=== PATIENT | male | born 2000 | race Caucasian/White ===

== ENCOUNTER 2023-12-10 18:03 | Emergency (ER) | payer SELFPAY ==
[~2023-12-10] VITALS: Ht 175.3 cm; Wt 81.0 kg
[2023-12-10 18:23] VITALS: BP 141/88; PULSE 64; RESP 20; TEMP 98; O2SAT 99
[2023-12-10] MEDS ORDERED: T3 PO (19:19)
[2023-12-10] MEDS ORDERED: BO1 TP (19:19)
[2023-12-10] MEDS: ACETAMINOPHEN WITH CODEINE 300/30MG TABLET PO ONE (19:20)
[2023-12-10] MEDS: BACITRACIN ZINC OINT UDPKT TOP ONE (19:21)
== END 2023-12-10 19:27 | disposition home or self-care (01) ==
LOC: ER 18:03
DX: S31.21XA Laceration without foreign body of penis, initial encounter (principal); Z98.890 Other specified postprocedural states; X58.XXXA Exposure to other specified factors, initial encounter; Y93.89 Activity, other specified; Y92.89 Other specified places as the place of occurrence of the external cause; Y99.8 Other external cause status
CPT/HCPCS: 99283

== ENCOUNTER 2025-02-22 13:09 | Emergency (ER) | payer MEDICAID ==
[~2025-02-22] VITALS: Ht 177.8 cm; Wt 109.0 kg
[~2025-02-22 13:09] MED LIST: BO1 TP; T3 PO
[2025-02-22 13:15] VITALS: O2SAT 97
[2025-02-22 13:30] VITALS: BP 147/99; PULSE 101; RESP 18; TEMP 36.8; O2SAT 98
[2025-02-22 14:00] LABS: BASOPHILS % 0.8 % (0.0-2.0); EOSINOPHILS % 0.1 % (0.0-5.0); HEMATOCRIT. 43.4 % (42.0-52.0); HEMOGLOBIN. 14.2 g/dL (14.0-18.0); LYMPHOCYTES % 12.8 % (20.0-50.0); MEAN CORPUSCULAR HEMOGLOBIN 26.4 pg (28.0-32.0); MEAN CORPUSCULAR HGB CONC 32.8 g/dL (31.0-37.0); MEAN CORPUSCULAR VOLUME 80.5 fL (80.0-94.0); MEAN PLATELET VOLUME 7.5 fl (7.4-10.4); MONOCYTES % 11.9 % (2.0-8.0); NEUTROPHILS % 74.4 % (40.0-76.0); PLATELET 334 x1000/uL (130-400); RED BLOOD CELL COUNT 5.39 mill/uL (4.7-6.1); RED CELL DISTRIBUTION WIDTH 14.4 % (11.6-14.6)
[2025-02-22 14:10] LABS: CHLORIDE 104 mEq/L (98-107); POTASSIUM 3.5 mEq/L (3.5-5.1); SODIUM 137 mEq/L (136-145)
[2025-02-22 14:11] LABS: CARBON DIOXIDE 23 mEq/L (21-32)
[2025-02-22 14:12] LABS: CALCIUM 9.2 mg/dL (8.7-10.4)
[2025-02-22 14:16] LABS: CREATININE 0.9 mg/dL (0.6-1.3); GLUCOSE 104 mg/dL (70-105)
[2025-02-22 14:17] LABS: UREA NITROGEN BLOOD 10 mg/dL (9-23)
[2025-02-22] MEDS ORDERED: NALO4SPR BOTHNSTRLS (17:00)
[2025-02-22 17:11] LABS: TROPONIN I HIGH SENSITIVITY 6 ng/L (3.0-53)
[2025-02-22 17:20] LABS: *AMPHETAMINES SCREEN URINE NEGATIVE (NEGATIVE); *BARBITURATES SCREEN URINE NEGATIVE (NEGATIVE); *BENZODIAZEPINES SCREEN URINE NEGATIVE (NEGATIVE); *COCAINE SCREEN URINE PRESUMPTIVE POSITIVE (NEGATIVE); METHADONE URINE SCREEN NEGATIVE (NEGATIVE)
[2025-02-22 17:21] LABS: CANNABINOID URINE SCREEN PRESUMPTIVE POSITIVE (NEGATIVE); ECSTASY MDMA SCREEN URINE NEGATIVE (NEGATIVE); OPIATES URINE SCREEN NEGATIVE (NEGATIVE); PHENCYCLIDINE URINE SCREEN NEGATIVE (NEGATIVE)
[2025-02-22 18:52] LABS: TROPONIN I HIGH SENSITIVITY 6 ng/L (3.0-53)
== END 2025-02-22 20:04 | disposition home or self-care (01) ==
LOC: ER 13:09
DX: F14.90 Cocaine use, unspecified, uncomplicated (principal); R00.2 Palpitations; Z79.899 Other long term (current) drug therapy
CPT/HCPCS: 36415; 71045; 80048; 80305; 84484; 85025; 93005; 99285